=== PATIENT | male | born 1965 | race Caucasian/White ===

== ENCOUNTER 2018-07-21 16:30 | Outpatient (RCR) | payer BC, SELFPAY ==
--- NOTE | 2018-06-15 17:29 | HMH.PTOPEV ---
PT Outpatient Evaluation Rehab PT Outpatient Evaluation Start: 06/15/18 16:51 Freq: Status: Active Protocol: Document 06/15/18 17:13 DAVIDABBEY (Rec: 06/15/18 17:29 LATANYA [id number]) Electronically Signed By Donald Navarrete, PT 06/15/18 17:13 Outpatient Therapy Subjective History Subjective History Patient is a 52 year old male presenting to outpatient PT with reports of L shoulder pain S/P fall at home on 06/02. Pt reports he was working on his roof at home when he slipped and fell on his roof landing on his shoulder. He continued to slide off of the roof and fall 9 ft while landing on his buttocks. He went to the ER. Diagnostics at ER were negative for fracture. Positive for subacromial stenosis and bone spur. No other comorbidities to report. Chief Complaint Pain Stiff Weakness Symptom Type Ache Sharp Symptoms Relieved By Prescription Meds Symptoms Aggravated By Physical Activity Lifting Prior Functional Limitations None Current Functional Limitations Reaching Lifting Housework Dressing Desk Work/Reading Driving Sleeping Recreation Activity Symptom Description Constant but Variable Level of pain today (0-10) 4 Pain scale - at its best (0-10) 3 Pain scale - at its worst (0-10) 8 Shoulder/Elbow Eval Shoulder Objective Measurements Palpation Tenderness tenderness over the bicipital tendon left shoulder exam standard tenderness over the SA bursa shoulder left exam standard Posture Shoulder Posture Sitting Position (L) Forward (R) Forward Scapula Posture Sitting Position (L) Protracted (R) Protracted Scapular Posture Standing Position (L) Protracted (R) Protracted Shoulder ROM Left Shoulder Abduction Active Range of 45 Motion (degrees) Shoulder Abduction Passive Range of 92 Motion (degrees) Shoulder Fle
--- NOTE | 2018-07-21 18:00 | HMH.RHREAS ---
Rehab Reassessment Rehab OP Re-assessment Start: 07/21/18 16:59 Freq: Status: Active Protocol: Document 07/21/18 17:04 LATANYA (Rec: 07/21/18 17:59 LATANYA [id number]) Electronically Signed By Donald Navarrete, PT 07/21/18 17:04 Rehab Re-assessment Subjective Subjective Pt reports 40% improvement since start of care. Objective Objective Notes PROM: WFL AROM: flx 62 deg, abd 40 deg, ER/IR WFL Pain: today upon arrival 0/10; 10/10 at worst MMT: 3-/5 grossly shoulder flx /abd/ER/IR Neuro WNL Assessment Progress Assessment Slower Than Expected Assessment Notes Pt presenting with positive drop arm test indicating possible rotator cuff tear. Rx has consisted of GHJ/STJ/ACJ mobility exercises, postural strengthing/correction, rotator cuff strengthening and modalities prn. He continues to demonstrate difficulty with all reaching/lifting activities resulting in fucntional limitations with occupational, household, recreational and ADL activities. Patient goals met None Goals Not Met All Revised Goals NA Plan Plan Refer back to MD for follow-up . Suggest order for MRI. Continue per MD orders Frequency of Therapy 2x/week Duration of therapy 4 weeks. Time and Billing Re-Eval Time 15 Re-Eval Billing Units 1 PHYSICIAN CERTIFICATION: I certify the specified therapy services for Alexandro Strong are required, authorized, and reviewed every 30 days.
== END 2018-07-31 16:35 | disposition home or self-care (01) ==
LOC: PT 16:30
PROVIDERS: Visit Provider Internal Medicine Adolescent Medicine
DX: S46.012D Strain of muscle(s) and tendon(s) of the rotator cuff of left shoulder, subsequent encounter (principal)
CPT/HCPCS: 97010; 97014; 97016; 97033; 97035; 97110; 97140; 97163; 97164; G0283

== ENCOUNTER → 2018-08-23 15:57 | Outpatient (CLI) | payer BC, SELFPAY ==
--- NOTE | 2018-08-23 15:59 | MR_ITS ---
MR shoulder LT wo con Ordering Physician: Ac Avalos MD Patient Age: 52 years: Male HISTORY: ITS.REASON: ROTATOR CUFF SYNDROME OF LEFT SHOULDER Left shoulder injury. Fall 3 months ago on shoulder. Unable to move arm above head. Pain with raising arm. Weakness and arm. Popping. TECHNIQUE: Multiplanar multisequence imaging 1.5 TE MR I. No contrast COMPARISON :Plain films left shoulder radiograph 06/03/2018 Previous plain films overall unremarkable. FINDINGS \ Large full-thickness rotator cuff tear involving supraspinatus tendon and likely superior aspect of the subscapularis tendon. Supraspinatus tendon:. Large complete full-thickness supraspinatus tendon tear with prominent tendon retraction up to 2.5 cm.. Free fluid passes to this large defect into the subdeltoid subacromial bursa. Subscapularis tendon: There is also rotator cuff tear, likely full-thickness tear the superior aspect of subscapularis tendon. ... With this we do appears to be some edema extending to the superior aspect of the subscapularis muscle on sagittal image.The inferior portion of the subscapularis tendon and muscle complex likely remaining more intact.. With the above features there is associated atrophy of supraspinatus muscle & superior subscapularis muscle supporting long-standing tear.. infraspinatus tendon appears to remain intact. An associated Muscle maintained. . Abnormal biceps tendon. The biceps tendon is been displaced from the bicipital groove to reside for anterior a due to the subscapularis tear this serving the crystal... And/or it has been torn with retraction . Osseous glenoid intact although slightly shallow with minimal anterior labrum. There may be some fraying and degeneration of anterior labrum. Slight narrowing of posterior glenohumeral joint. The acromion demonstrates some minimal downward sloping with minimal spurring near its tip. This does narrow this subacromial space to just less than 5 mm in this region. Moderate AC joint arthropathy, hypertrophy yields slight bulbous appearance of the AC joint which is encroaches upon the medial outlet. . .... IMPRESSION: ... ... Anterior/superior rotator cuff tear pattern With this there is a large complete full-thickness tear of supraspinatus tendon with prominent retraction. . Also a full-thickness tear involving the subscapularis tendon, involving a significant portion superior aspect of this tendon.. . I suspect biceps tendon is dislocated anterior medial,,- secondary to the subscapularis tendon tear.
== END ==
PROVIDERS: PCP Internal Medicine Adolescent Medicine; Visit Provider Internal Medicine Adolescent Medicine
DX: M75.102 Unspecified rotator cuff tear or rupture of left shoulder, not specified as traumatic (principal)
CPT/HCPCS: 73221

== ENCOUNTER → 2018-09-08 10:15 | Outpatient (CLI) | payer BC, SELFPAY ==
--- NOTE | 2018-09-08 10:22 | XR_ITS ---
XR shoulder LT min 2V HISTORY: Posttraumatic pain ITS.REASON: grashy, axillary, scapular y views ORDERING PHYSICIAN: Hue Dietz MD PATIENT AGE: 52 years Comparison: 06/03/2018 FINDINGS: There are mild osteoarthritic changes of the acromioclavicular joint and glenohumeral joint. Subchondral cystic changes are present at the humeral head which may be seen with rotator cuff disease.. No fracture or dislocation. No lytic or blastic change. IMPRESSION: Mild osteoarthritic change with subchondral cystic changes of the humeral head
== END ==
PROVIDERS: PCP Internal Medicine Adolescent Medicine; Visit Provider Orthopaedic Surgery
DX: S43.402A Unspecified sprain of left shoulder joint, initial encounter (principal)
CPT/HCPCS: 73030

== ENCOUNTER 2018-10-19 13:30 | Outpatient (RCR) | payer BC, SELFPAY ==
--- NOTE | 2018-09-28 09:31 | HMH.OTOPEV ---
OT Inpatient Evaluation Rehab OT Outpatient Eval Start: 09/28/18 08:36 Freq: Status: Active Protocol: Document 09/28/18 08:37 RMARSHALL (Rec: 09/28/18 09:[facility] [id number] Electronically Signed By Dwayne Lock OT 09/28/18 08:37 Outpatient Therapy Subjective History Subjective History Pt is a 52 year old male who reports to therapy for initial evaluation to Left shoulder. Pt reports he fell off of his roof on 06/03/18 and landed on left shoulder. Pt did have an MRI completed which showed RTC tears at supraspinatus and subscapularis. Pt demonstrates with decreased AROM and PROM at left shoulder as well as decreased strength . Pt will continue to be seen in order to address these deficits. AROM L shoulder STG Flex: 130 degrees Abd: 125 degrees ER: 60 degrees IR: 60 degrees AROM L shoulder LTG Flex: 160 degrees Abd: 160 degrees ER: 80 degrees IR: 80 degrees PROM L shoulder STG Flex: 140 degrees Abd: 130 degrees ER: 80 degrees IR: 80 degrees PROM L shoulder LTG Flex: 160 degrees Abd: 160 degrees ER: 80 degrees IR: 80 degrees Chief Complaint Pain Stiff Weakness Symptom Type Ache Throb Dull Symptoms Relieved By Rest/Positioning Symptoms Aggravated By Physical Activity Lifting Prior Functional Limitations None Current Functional Limitations Reaching Lifting Housework Sleeping Recreation Activity Symptom Description Intermittent Activit
== END 2018-10-19 13:35 | disposition home or self-care (01) ==
LOC: OT 13:30
PROVIDERS: Visit Provider Orthopaedic Surgery
DX: M75.122 Complete rotator cuff tear or rupture of left shoulder, not specified as traumatic (principal); M75.02 Adhesive capsulitis of left shoulder
CPT/HCPCS: 97014; 97110; 97140; 97166; G0283

== ENCOUNTER → 2018-11-11 08:39 | Outpatient (CLI) | payer BC, SELFPAY ==
--- NOTE | 2018-11-11 08:47 | XR_ITS ---
XR chest 2V HISTORY: Hypertension ITS.REASON: pre op ORDERING PHYSICIAN: Hue Dietz MD PATIENT AGE: 52 years COMPARISON: None FINDINGS: The cardiomediastinal silhouette and pulmonary vascularity are within normal limits. The lungs are clear without infiltrates, suspicious nodules, or pleural effusions. No acute bony abnormalities. IMPRESSION: Negative chest, no acute finding
[2018-11-11 09:02] LABS: Basophils # 0.1 K/mm3 (0-0.2); Basophils % 0.8 % (0.1-2.0); Eosinophils # 0.2 K/mm3 (0.0-0.4); Eosinophils % 4.2 % (0.1-12.0); Hematocrit 45.9 % (42.0-52.0); Hemoglobin 15.7 g/dL (14.1-18.0); Lymphocytes # 1.9 K/mm3 (0.7-4.5); Lymphocytes % 34.7 % (10-50); Mean Corpuscular HGB Conc 34.1 g/dL (31.8-35.4); Mean Corpuscular Hemoglobin 30.8 pg (27.0-31.2); Mean Corpuscular Volume 90.2 fl (80-94); Mean Platelet Volume 8.4 fl (7.4-10.4); Monocytes # 0.4 K/mm3 (0.1-1.0); Monocytes % 7.9 % (1.7-9.3); Neutrophils # 2.9 K/mm3 (1.8-7.8); Neutrophils % 52.4 % (37.0-80.0); Platelet Count 239 K/mm3 (142-424); Red Blood Count 5.09 M/mm3 (4.60-6.20); Red Cell Distribution Width 13.5 % (11.5-17.5); White Blood Count 5.5 K/mm3 (4.8-10.8)
[2018-11-11 09:14] LABS: INR 1.03 (0.9-1.1); Prothrombin Time 10.6 seconds (9.4-11.8)
[2018-11-11 09:38] LABS: Alanine Aminotransferase 34 U/L (12-78); Albumin Level 3.6 gm/dL (3.4-5.0); Alkaline Phosphatase 89 U/L (46-116); Aspartate Amino Transferase 15 U/L (15-37); Bilirubin,Total 1.1 mg/dL (0.2-1.0); Blood Urea Nitrogen 16 mg/dL (7-18); Calcium 8.5 mg/dL (8.5-10.1); Carbon Dioxide 26 mmol/L (21.0-32.0); Chloride 107 mmol/L (98-107); Creatinine,Serum 1.08 mg/dL (0.70-1.30); Estimated Glomerular Filt Rate 71 ml/min (>60); GFR (African American) 86 ML/MIN (>60); Globulin 3.6 gm/dl (1.3-3.2); Glucose 93 mg/dL (74-106); Sodium 141 mmol/L (136-145); Total Protein,Serum 7.2 gm/dL (6.4-8.2)
== END ==
PROVIDERS: Visit Provider Orthopaedic Surgery
DX: Z01.818 Encounter for other preprocedural examination (principal); S43.402A Unspecified sprain of left shoulder joint, initial encounter
CPT/HCPCS: 36415; 71046; 80053; 85025; 85610

== ENCOUNTER 2018-11-30 08:32 | Day surgery (SDC) | payer BC, SELFPAY ==
[2018-11-26 13:06] VITALS: BMI 32.5
[2018-11-30] VITALS (12 sets, daily range): BP systolic 145–181; BP diastolic 93–117; PULSE 56–76; RESP 12–20; TEMP 36.1–43; O2SAT 93–96
--- NOTE | 2018-11-30 08:56 | P.PN_ITS ---
[facility] Anesthesia Checklist - Structural Data Admitted From: Home Planned Operative Procedure/s: l shoulder arthroscopy Consent for Planned Operative Procedure(s) Verified: Yes - Airway Assessment C-Spine Mobility Assessed: Yes TMJ Mobility Assessed: Yes Dentition: Good Dentition - Neurological Assessment Level of Consciousness: Awake, Alert, Appropriate - Anesthesia Plan Anesthesia Risk discussed: Yes Anesthesia Plan: Verified ASA Class: II Anesthesia Type: General - Preoperative Comments Pre-Operative Comments: IS block explained to pt, pt agrees to proceed w block [facility] History I have reviewed the patient's past medical history: Yes Medical History: Reports:: Hypertension Denies:: Cancer, Diabetes Mellitus Type 1, Diabetes Mellitus Type 2, Internal Pacemaker, MRSA *Have you ever received a pneumonia vaccine?: No *Have you received a flu vaccine this season?: No Other Surgeries: Yes: No Previous Surgery. No: Pacemaker Amputation: No Fractures: No - *Social History Educational Level: Completed College Smoking Status: Never smoker Alcohol Intake: never Alcohol Intake Frequency:: a few times a week *Occupational Status:: employed Housing: house *Travel in the last 8 weeks: None - Psychiatric History Expresses thoughts of harming self/others: None Suicide Plan Description: No Plan Family Hx:: No significant family history
[2018-11-30 10:25] LABS: Microscopic,Cath URINE MICROSCOPIC (MICROSCOPIC)
[2018-11-30 10:29] LABS: Appearance,Urine/Cath CLEAR (Clear); Bilirubin,Cath Negative (Negative); Blood, Urine/Cath 3+ (Negative); Color,Urine/Cath YELLOW (Yellow); Glucose,Urine/Cath (UA) Negative (Negative); Ketones,Urine/Cath Negative (Negative); Leukocyte Esterase,Cath Negative (Negative); Nitrate,Cath Negative (Negative); Protein,Urine/Cath Negative (Negative); Specific Gravity, Urine/Cath 1.025 (1.005-1.030); Urobilinogen,Cath 0.2 EU/dl (0.2)
[2018-11-30 10:45] LABS: Bacteria,Urine/Cath TRACE /lpf; RBC,Urine/Cath 20-50 # /hpf (0-3); Squamous Epithelial Ur./Cath Occasional #/hpf (0-5)
--- NOTE | 2018-11-30 14:21 | HMH.ANESI ---
[facility] Anesthesia Record Part I Intake, IV Amount: 2,900 Estimated blood loss (mL): 10 Urine output (mL): 350 Blood Pressure: 149/103 SaO2: 94 Pulse Rate: 71 Respiratory Rate: 12 Temperature: 97.3 F Patient is:: Awake, Stable Stable to PACU at:: 14:15
--- NOTE | 2018-11-30 14:22 | P.PN_ITS ---
[facility] Anesthesia Record Part II Discharge Time: 14:45 Destination: [facility] PACU nurse assessment reviewed?: Yes Patient Condition:: Good Anesthesia Complications:: None Swallowing reflex intact?: Yes Cyanosis?: No
--- NOTE | 2018-11-30 14:22 | HMH.ANESII ---
[facility] Anesthesia Record Part II Discharge Time: 14:45 Destination: [facility] PACU nurse assessment reviewed?: Yes Patient Condition:: Good Anesthesia Complications:: None Swallowing reflex intact?: Yes Cyanosis?: No
--- NOTE | 2018-11-30 15:13 | PC.NURSE ---
1446-detailed report called to Eliezer,RN 1449-pt transported to post op via stretcher w/rails up and left in care of POLLO Childers. Detailed report given at bedside. VSS-Pt's BP 160/92-notified POLLO Childers to continue to monitor and if does not improve notify STATION MASTER. Pt stable.
--- NOTE | 2018-11-30 16:29 | HMH.OPNOTE ---
Date of procedure: 11/30/18 Pre-op Diagnosis:: L shoulder RTC tear (supraspinatus + subscapularis) Post-op Diagnosis:: same Procedure performed:: L shoulder arthroscopy with: LHBT tenotomy, subacromial decompression w/acromioplasty, RTC repair (supraspinatus + subscapularis) Surgeon:: Hue Dietz MD Advertising Consultant(s):: Jaiden Mcarthur MD GAS LINE SERVICER:: León Ordaz Anesthesia: GETA, regional Estimated blood loss (mL): 10 Clinical Note:: 53-year-old gentleman with a history of left shoulder pain that did not respond to several months of occupational therapy, NSAIDs and icing. MRI revealed tearing of the supraspinatus and subscapularis tendons. During the course of his rehabilitation, he began developing shoulder stiffness and suspected adhesive capsulitis which improved somewhat with continued therapy and stretching. I discussed surgical options with him and we have agreed to rotator cuff repair and biceps tenotomy. I specifically discussed long-term outcomes of both the biceps tenodesis and tenotomy and the patient vocalized desire for tenotomy. I also discussed the need for an exam under anesthesia and if he appeared to have adhesive capsulitis, capsular release may be necessary. I discussed risks of the surgery in detail with the patient, including bleeding, infection, failure of the rotator cuff to heal, re-tearing of the rotator cuff, neurovascular damage, need for further surgery in the future, and risks of anesthesia. The patient vocalized understanding and provided informed consent. Operative findings:: full-thickness tears of subscapularis + anterior supraspinatus without retraction; biceps anchor intact but superior/anterior labrum frayed, substance of LHBT appears degenerated Operative note:: The patient was identified in preoperative holding and the left shoulder signed by myself. Surgical consent was confirmed with the patient and all questions answered. He was then seen by anesthesia and an interscalene nerve block performed of the left upper extremity. Patient was then taken to the OR, placed supine on the operative table and 2 g of Ancef infused intravenously. General anesthesia was induced and the patient placed into the beachchair position. The left shoulder was then prepped and draped in the usual sterile fashion for shoulder arthroscopy. Timeout was performed, identifying the correct patient, correct procedure, and correct site. The procedure was begun by performing an exam under anesthesia. The patient's range of motion ended at around 140 degrees forward elevation and 30 degrees external rotation; with gentle range of motion, I heard releasing of scar tissue in his shoulder. I did not intend to perform a manipulation under anesthesia, but this is essentially what I did. Afterward, I had full range of motion of his shoulder. Next, I used a marking pen to draw out anatomic landmarks on the patient's left shoulder. Using a 11 blade, a standard posterior viewing portal was established and a 30 degree arthroscope introduced into the glenohumeral joint. I could immediately see that the biceps was intact but the anchor frayed and the labrum frayed along its anterior-superior length. Using a spinal needle and an outside-in technique, standard anterior working portal was then established and an 8mm cannula placed. Through this portal a probe was used to examine the biceps tendon in more detail. The biceps anchor was frayed in the tendon itself, though not severely degenerative or torn, did not appear healthy and with a combination of subscap repair and a questionable biceps, the decision was made to tenotomize it. Curved arthroscopic scissors were inserted via the cannula and biceps tenotomy performed; the tendon could be seen to retract distally after it was severed. A shaver was used to debride the tendon stump. The articular surface was intact with no focal chondral lesions and good healthy cartilage on the glenoid and humeral head articular
--- NOTE | 2018-11-30 16:34 | P.OP_ITS ---
Date of procedure: 11/30/18 Pre-op Diagnosis:: L shoulder RTC tear (supraspinatus + subscapularis) Post-op Diagnosis:: same Procedure performed:: L shoulder arthroscopy with: LHBT tenotomy, subacromial decompression w/acromioplasty, RTC repair (supraspinatus + subscapularis) Surgeon:: Hue Dietz MD Naval Gunfire Liaison Officer(s):: Jaiden Mcarthur MD AIRLINE PILOT/FIRST OFFICER:: León Ordaz Anesthesia: GETA, regional Estimated blood loss (mL): 10 Clinical Note:: 53-year-old gentleman with a history of left shoulder pain that did not respond to several months of occupational therapy, NSAIDs and icing. MRI revealed tearing of the supraspinatus and subscapularis tendons. During the course of his rehabilitation, he began developing shoulder stiffness and suspected adhesive capsulitis which improved somewhat with continued therapy and stretching. I discussed surgical options with him and we have agreed to rotator cuff repair and biceps tenotomy. I specifically discussed long-term outcomes of both the biceps tenodesis and tenotomy and the patient vocalized desire for tenotomy. I also discussed the need for an exam under anesthesia and if he appeared to have adhesive capsulitis, capsular release may be necessary. I discussed risks of the surgery in detail with the patient, including bleeding, infection, failure of the rotator cuff to heal, re-tearing of the rotator cuff, neurovascular damage, need for further surgery in the future, and risks of anesthesia. The patient vocalized understanding and provided informed consent. Operative findings:: full-thickness tears of subscapularis + anterior supraspinatus without retraction; biceps anchor intact but superior/anterior labrum frayed, substance of LHBT appears degenerated Operative note:: The patient was identified in preoperative holding and the left shoulder signed by myself. Surgical consent was confirmed with the patient and all questions answered. He was then seen by anesthesia and an interscalene nerve block performed of the left upper extremity. Patient was then taken to the OR, placed supine on the operative table and 2 g of Ancef infused intravenously. General anesthesia was induced and the patient placed into the beachchair position. The left shoulder was then prepped and draped in the usual sterile fashion for [facility] arthroscopy. Timeout was performed, identifying the correct patient, correct procedure, and correct site. The procedure was begun by performing an exam under anesthesia. The patient's range of motion ended at around 140 degrees forward elevation and 30 degrees external rotation; with gentle range of motion, I heard releasing of scar tissue in his shoulder. I did not intend to perform a manipulation under anesthesia, but this is essentially what I did. Afterward, I had full range of motion of his shoulder. Next, I used a marking pen to draw out anatomic landmarks on the patient's left shoulder. Using a 11 blade, a standard posterior viewing portal was established and a 30 degree arthroscope introduced into the glenohumeral joint. I could immediately see that the biceps was intact but the anchor frayed and the labrum frayed along its anterior-superior length. Using a spinal needle and an outside-in technique, standard anterior working portal was then established and an 8mm cannula placed. Through this portal a probe was used to examine the biceps tendon in more detail. The biceps anchor was frayed in the tendon itself, though not severely degenerative or torn, did not appear healthy and with a combination of subscap repair and a questionable biceps, the decision was made to tenotomize it. Curved arthroscopic scissors were inserted via the cannula and biceps tenotomy performed; the tendon could be seen to retr
== END 2018-11-30 16:06 | disposition home or self-care (01) ==
PROVIDERS: PCP Internal Medicine Adolescent Medicine; Visit Provider Orthopaedic Surgery
PROC: (CPT 29805; principal; 2018-11-30 10:00)
DX: M75.112 Incomplete rotator cuff tear or rupture of left shoulder, not specified as traumatic (principal); S46.112A Strain of muscle, fascia and tendon of long head of biceps, left arm, initial encounter; S46.012A Strain of muscle(s) and tendon(s) of the rotator cuff of left shoulder, initial encounter
CPT/HCPCS: 29827; 29828; 29826; 81001; 96374; C1713; J2405

== ENCOUNTER → 2019-04-04 14:06 | Outpatient (CLI) | payer BC, SELFPAY ==
--- NOTE | 2019-04-04 14:09 | XR_ITS ---
PROCEDURE: XR SHOULDER LT MIN 2V CLINICAL INDICATION: Shoulder pain COMPARISON: SHOULDCMLT XR shoulder LT min 2V from 06/03/2018 SHOULDCMLT XR shoulder LT min 2V from 09/08/2018 FINDINGS: There are now 2 fixation pins involving the proximal left humerus. The bone density, joint spaces and alignment are normal. There is no acute fracture. Soft tissues are IMPRESSION: Evidence of surgery. No acute process. Dictated by: Terrence Moore 04/04/2019 14:37 Electronically signed by Terrence Moore in [facility] 04/04/2019 14:37
== END ==
PROVIDERS: PCP Internal Medicine Adolescent Medicine; Visit Provider Orthopaedic Surgery
DX: S43.402A Unspecified sprain of left shoulder joint, initial encounter (principal)
CPT/HCPCS: 73030

== ENCOUNTER 2019-04-28 15:30 | Outpatient (RCR) | payer BC, SELFPAY ==
--- NOTE | 2018-12-17 15:34 | HMH.OTOPEV ---
OT Inpatient Evaluation Rehab OT Outpatient Eval Start: 12/17/18 15:21 Freq: Status: Active Protocol: Document 12/17/18 15:22 RMARSHALL (Rec: 12/17/18 15:[facility] [id number][facility] Electronically Signed By Dwayne Lock OT 12/17/18 15:22 Outpatient Therapy Subjective History Subjective History Pt is a 53 year old male who reports to therapy for initial evauation to left shoulder. Pt has been seen previously by therapy due to injury on by falling off his roof. Pt is currently s/p L shoulder arthrosocpy, LHBT tenotomy, SAD with acromioplasty, RTC repair on the supraspinatus and subscapularis on 11/30/18. Pt does demonstrate with significant delcine in PROM with stiffness and pain. Pt will continue to be seen in order to address all deficits. L shoulder AROM Goals STG Flex: 110 degrees Abd: 110 degrees ER: 60 degrees IF: 60 degrees L Shoulder AROM LTG Flex: 160 degrees Abd: 160 degrees ER: 75 degrees IR: 75 degrees Chief Complaint Pain,Stiff,Weakness Symptom Type Ache,Throb,Sharp,Dull,Stabbing Symptoms Relieved By Rest/Positioning,Ice Symptoms Aggravated By Physical Activity,Lifting Prior Functional Limitations None Current Functional Limitations Reaching,Lifting,Housework, Dressing,Desk Work/Reading, Driving,Sleeping,Recreation Activity Symptom Description Intermittent,Activity Dependent Level of pain today (0-10) 2 Pain scale - at its best (0-10) 1 Pain scale - at its worst (0-10) 6 Shoulder/Elbow Eval Shoulder Objective Measurements Shoulder ROM Left Shoulder Abduction Passive Range of 90 degrees Motion (degrees) Shoulder Flexion Passive Range of Motion 90 degrees (degrees) Shoulder External Rotation Passive Range 20 degrees of Motion (degrees) Shoulder Internal Rotation Passive Range 30 degrees of Motion (degrees) pain with active ROM shoulder exam
--- NOTE | 2019-02-04 16:15 | HMH.RHREAS ---
Rehab Reassessment Rehab OP Re-assessment Start: 02/04/19 16:07 Freq: Status: Active Protocol: Document 02/04/19 16:07 ROOSEVELT (Rec: 02/04/19 16:15 ROOSEVELT [id number]) Electronically Signed By Dwayne Lock OT 02/04/19 16:07 Rehab Re-assessment Subjective Subjective It is still pretty tight. Objective Objective Notes Pt continues to be seen twice a week in order to engage in L shoulder AAROM exercises. Pt is also being passively ranged twice a week in supine in all directions. Pt does receive modalities such as e- stim and ionto to decrease pain/inflammation. Assessment Progress Assessment Slower Than Expected Assessment Notes Pt has shown improvement in PROM since initial evaluation. The left shoulder remains tight, but is improving with each session. He is re- educated on the importance of completing HEP during each session. Pt's pain does seem to be improved since beginning therapy. AROM L shoulder Current Flex: 80 degrees Abd: 76 degrees ER: 42 degrees IR: 53 degrees PROM L Shoudler current Flex: 135 degrees Abd: 141 degrees ER: 50 degrees IR: 61 degrees Patient goals met n/a Goals Not Met STG and LTG Revised Goals Continue progressing towards STG and LTG written at initial evaluation. Plan Plan Continue with OT plan of care at this time. Frequency of Therapy 2x's a week Duration of therapy 6 more weeks. Time and Billing Re-Eval Time 15 Re-Eval Billing Units 1 PHYSICIAN CERTIFICATION: I certify the specified therapy services for Alexandro Strong are required, authorized, and reviewed every 30 days.
--- NOTE | 2019-03-15 16:35 | HMH.RHREAS ---
Rehab Reassessment Rehab OP Re-assessment Start: 02/04/19 16:07 Freq: Status: Active Protocol: Document 03/15/19 15:20 RMDOMENICAL (Rec: 03/15/19 16:35 RMARSHALL [id number]) Electronically Signed By Dwayne Lock OT 03/15/19 15:20 Rehab Re-assessment Subjective Subjective Still a little stiff, but better. Objective Objective Notes Pt continues to be seen twice a week in order to engage in L shoulder AAROM/AROM/ Strengthening exercises. Pt is also being passively ranged twice a week in supine in all directions. Pt does receive modalities such as e-stim and ionto to decrease pain/ inflammation. Assessment Progress Assessment Slower Than Expected Assessment Notes Pt has shown improvement in PROM since initial evaluation. The left shoulder remains tight, but is improving with each session. However, pt's AROM is still significantly declined. He is re-educated on the importance of completing HEP during each session. Pt's pain does seem to be improved since beginning therapy. AROM L shoulder Current Flex: 100 degrees Abd: 100 degrees ER: 62 degrees IR: 70 degrees PROM L Shoudler current Flex: 160 degrees Abd: 150 degrees ER: 70 degrees IR: 80 degrees Patient goals met n/a Goals Not Met STG and LTG Revised Goals Continue progressing towards STG and LTG written at initial evaluation. Plan Plan Continue with OT plan of care at this time. Frequency of Therapy 2x's a week Duration of therapy 6 more weeks. Time and Billing Re-Eval Time 15 Re-Eval Billing Units 1 PHYSICIAN CERTIFICATION: I certify the specified therapy services for Alexandro Strong are requi
--- NOTE | 2019-04-26 16:46 | HMH.RHREAS ---
Rehab Reassessment Rehab OP Re-assessment Start: 02/04/19 16:07 Freq: Status: Active Protocol: Document 04/26/19 15:28 ROOSE[place]ELT (Rec: 04/26/19 16:45 RMDOMENICAL [id number]) Electronically Signed By Dwayne Lock OT 04/26/19 15:28 Rehab Re-assessment Subjective Subjective Pt reports he feels he is able to move arms better. Objective Objective Notes Pt continues to be seen twice a week in order to engage in L shoulder AAROM/AROM/ Strengthening exercises. Pt is also being passively ranged twice a week in supine in all directions. Pt does receive modalities such as e-stim and ionto to decrease pain/ inflammation. Assessment Progress Assessment Progressing as Expected Assessment Notes Pt has shown improvement in AROM since last re-assessment. However, pt's AROM is still slightly declined. Pt's pain does seem to be improved since beginning therapy. AROM L shoulder Current Flex: 118 degrees Abd: 115 degrees ER: 62 degrees IR: 70 degrees PROM L [place] current Flex: 160 degrees Abd: 150 degrees ER: 70 degrees IR: 80 degrees Patient goals met n/a Goals Not Met STG and LTG Revised Goals Continue progressing towards STG and LTG written at initial evaluation. Plan Plan Continue with OT plan of care at this time. Frequency of Therapy 2x's a week Duration of therapy 4 more weeks. Time and Billing Re-Eval Time 15 Re-Eval Billing Units 1 PHYSICIAN CERTIFICATION: I certify the specified therapy services for Alexandro Strong are required, authorized, and reviewed every 30 days.
== END 2019-04-28 15:35 | disposition home or self-care (01) ==
LOC: OT 15:30
PROVIDERS: Visit Provider Orthopaedic Surgery
DX: S46.012D Strain of muscle(s) and tendon(s) of the rotator cuff of left shoulder, subsequent encounter (principal)
CPT/HCPCS: 97014; 97033; 97110; 97140; 97164; 97166; G0283

== ENCOUNTER → 2019-07-05 08:31 | Outpatient (CLI) | payer BC, SELFPAY ==
[2019-07-05 11:02] LABS: Alanine Aminotransferase 29 U/L (12-78); Albumin Level 3.5 gm/dL (3.4-5.0); Albumin/Globulin Ratio 1.1 (1.1-1.8); Alkaline Phosphatase 85 U/L (46-116); Anion Gap 16.4 mEq/L (5-15); Aspartate Amino Transferase 16 U/L (15-37); Bilirubin,Total 0.7 mg/dL (0.2-1.0); Blood Urea Nitrogen 19 mg/dL (7-18); Calcium 8.4 mg/dL (8.5-10.1); Carbon Dioxide 25 mmol/L (21.0-32.0); Chloride 106 mmol/L (98-107); Chol/HDL Ratio 4.5 (1-3.5); Cholesterol 184 mg/dL (140-200); Creatinine,Serum 0.95 mg/dL (0.70-1.30); Estimated Glomerular Filt Rate 82 ml/min (>60); GFR (African American) 100 ML/MIN (>60); Globulin 3.3 gm/dl (1.3-3.2); Glucose 86 mg/dL (74-106); HDL Cholesterol 41 mg/dL (27-67); LDL Cholesterol 124 mg/dL (0-130); Potassium 4.4 mmoL/L (3.5-5.1); Prostate Specific Ag Screen 0.7 ng/mL (0.0-4.0); Sodium 143 mmol/L (136-145); Thyroid Stimulating Hormone 1.76 uIU/ml (0.358-3.740); Total Protein,Serum 6.8 gm/dL (6.4-8.2); Triglycerides 97 mg/dL (30-200); VLDL Cholesterol 19 mg/dL (0-40)
[2019-07-05 17:33] LABS: Basophils # 0.1 K/mm3 (0-0.2); Basophils % 0.9 % (0.1-2.0); Eosinophils # 0.2 K/mm3 (0.0-0.4); Eosinophils % 3.4 % (0.1-12.0); Hematocrit 48.6 % (42.0-52.0); Hemoglobin 16.2 g/dL (14.1-18.0); Lymphocytes # 1.8 K/mm3 (0.7-4.5); Mean Corpuscular HGB Conc 33.4 g/dL (31.8-35.4); Mean Corpuscular Hemoglobin 30.9 pg (27.0-31.2); Mean Corpuscular Volume 92.5 fl (80-94); Mean Platelet Volume 9.8 fl (7.4-10.4); Monocytes # 0.4 K/mm3 (0.1-1.0); Monocytes % 7.4 % (1.7-9.3); Neutrophils # 3.2 K/mm3 (1.8-7.8); Neutrophils % 56.3 % (37.0-80.0); Platelet Count 211 K/mm3 (142-424); Red Blood Count 5.25 M/mm3 (4.60-6.20); Red Cell Distribution Width 13.1 % (11.5-17.5); White Blood Count 5.6 K/mm3 (4.8-10.8)
== END ==
PROVIDERS: Visit Provider Internal Medicine Adolescent Medicine
DX: Z00.00 Encounter for general adult medical examination without abnormal findings (principal); E29.1 Testicular hypofunction
CPT/HCPCS: 36415; 80053; 80061; 84443; 85025; G0103

== ENCOUNTER → 2020-11-02 09:01 | Outpatient (CLI) | payer BC, SELFPAY ==
[2020-11-02 09:19] LABS: Basophils # 0.1 K/mm3 (0-0.2); Eosinophils # 0.2 K/mm3 (0.0-0.4); Eosinophils % 3.6 % (0.1-12.0); Hematocrit 47.7 % (42.0-52.0); Hemoglobin 16.4 g/dL (14.1-18.0); Lymphocytes # 1.7 K/mm3 (0.7-4.5); Lymphocytes % 28.9 % (10-50); Mean Corpuscular HGB Conc 34.3 g/dL (31.8-35.4); Mean Corpuscular Hemoglobin 31.2 pg (27.0-31.2); Mean Corpuscular Volume 90.8 fl (80-94); Mean Platelet Volume 8.4 fl (7.4-10.4); Monocytes # 0.6 K/mm3 (0.1-1.0); Monocytes % 9.3 % (1.7-9.3); Neutrophils # 3.4 K/mm3 (1.8-7.8); Neutrophils % 57.1 % (37.0-80.0); Platelet Count 206 K/mm3 (142-424); Red Blood Count 5.26 M/mm3 (4.60-6.20); Red Cell Distribution Width 13.6 % (11.5-17.5)
[2020-11-02 09:30] LABS: Hemoglobin A1C 5.6 % (4.0-6.0)
[2020-11-02 09:52] LABS: Alanine Aminotransferase 46 U/L (12-78); Albumin Level 4.1 g/dl (3.5-5.0); Albumin/Globulin Ratio 1.3 (1.1-1.8); Alkaline Phosphatase 91 U/L (38-126); Anion Gap 8.5 mEq/L (5-15); Aspartate Amino Transferase 43 U/L (17-59); Blood Urea Nitrogen 14 mg/dl (9-20); Calcium 9.2 mg/dl (8.4-10.2); Carbon Dioxide 28 mmol/L (22.0-30.0); Chloride 108 mmol/L (98-107); Chol/HDL Ratio 4.2 (1-3.5); Cholesterol 206 mg/dl (140-200); Estimated Glomerular Filt Rate 69 ml/min (>60); GFR (African American) 84 ML/MIN (>60); Globulin 3.1 g/dL (1.3-3.2); Glucose 101 mg/dl (74-100); HDL Cholesterol 49 mg/dl (40-60); Potassium 4.5 mmoL/L (3.5-5.1); Sodium 140 mmol/L (136-145); Total Protein,Serum 7.2 g/dl (6.3-8.2); Triglycerides 159 mg/dl (30-150); VLDL Cholesterol 32 mg/dL (0-40)
[2020-11-02 10:04] LABS: Direct LDL Cholesterol 119.47 mg/dL (100-129)
[2020-11-02 10:23] LABS: Prostate Specific Ag Screen 0.6 ng/ml (0.0-4.0)
== END ==
PROVIDERS: Visit Provider Internal Medicine Adolescent Medicine
DX: Z00.00 Encounter for general adult medical examination without abnormal findings (principal); I10 Essential (primary) hypertension; E66.9 Obesity, unspecified; Z12.5 Encounter for screening for malignant neoplasm of prostate; Z68.31 Body mass index [BMI] 31.0-31.9, adult
CPT/HCPCS: 36415; 80053; 80061; 83036; 85025; G0103

== ENCOUNTER 2020-11-12 16:20 | Observation (INO) | payer BC, SELFPAY ==
[2020-11-12 12:11] LABS: Basophils # 0.1 K/mm3 (0-0.2); Basophils % 0.4 % (0.1-2.0); Chloride 101 mmol/L (98-107); Eosinophils # 0.2 K/mm3 (0.0-0.4); Eosinophils % 1.2 % (0.1-12.0); Hemoglobin 17.3 g/dL (14.1-18.0); Lymphocytes # 1.7 K/mm3 (0.7-4.5); Lymphocytes % 10.3 % (10-50); Mean Corpuscular HGB Conc 33.9 g/dL (31.8-35.4); Mean Corpuscular Hemoglobin 31.1 pg (27.0-31.2); Mean Corpuscular Volume 91.7 fl (80-94); Mean Platelet Volume 8.4 fl (7.4-10.4); Monocytes # 1.1 K/mm3 (0.1-1.0); Monocytes % 6.4 % (1.7-9.3); Neutrophils # 13.6 K/mm3 (1.8-7.8); Neutrophils % 81.8 % (37.0-80.0); Platelet Count 220 K/mm3 (142-424); Red Blood Count 5.56 M/mm3 (4.60-6.20); Red Cell Distribution Width 13.3 % (11.5-17.5); White Blood Count 16.7 K/mm3 (4.8-10.8)
[2020-11-12 12:12] LABS: Potassium 4.3 mmoL/L (3.5-5.1); Sodium 138 mmol/L (136-145)
[2020-11-12 12:14] LABS: Amylase 118 U/L (30-110); Anion Gap 15.3 mEq/L (5-15); Carbon Dioxide 26 mmol/L (22.0-30.0)
[2020-11-12 12:15] LABS: Albumin Level 4.8 g/dl (3.5-5.0); Albumin/Globulin Ratio 1.2 (1.1-1.8); Globulin 4.1 g/dL (1.3-3.2); Lipase 267 U/L (23-300); Total Protein,Serum 8.9 g/dl (6.3-8.2)
[2020-11-12 12:17] LABS: Alanine Aminotransferase 29 U/L (12-78); Alkaline Phosphatase 95 U/L (38-126); Aspartate Amino Transferase 26 U/L (17-59); Bilirubin,Total 1.7 mg/dl (0.2-1.3); Blood Urea Nitrogen 11 mg/dl (9-20); Calcium 9.8 mg/dl (8.4-10.2); Estimated Glomerular Filt Rate 77 ml/min (>60); GFR (African American) 94 ML/MIN (>60); Glucose 136 mg/dl (74-100)
[2020-11-12 12:19] LABS: MANUAL DIFFERENTIAL MANUAL DIFFERENTIAL (MANUAL DIFF)
--- NOTE | 2020-11-12 14:01 | CT_ITS ---
PROCEDURE: CT ABDOMEN PELVIS W CON CLINICAL INDICATION: ABD PAIN,LLQ PAIN COMPARISON: No exams were available for comparison TECHNIQUE: IV Contrast: 75ML Isovue 370 Oral Contrast None Axial images obtained with sagittal and coronal reformats. All CT scans at the facility use one or more dose reduction, viz: automated exposure control, ma/kV adjustment per patient size (including targeted exams where dose is matched to indication, i.e. head), or iterative reconstruction technique. FINDINGS: LOWER THORAX: No acute finding ABDOMEN & PELVIS: Diffuse fatty infiltration of the liver. The gallbladder is unremarkable. No evidence of cholelithiasis. There is a focal hypodensity noted in the gallbladder fossa, may represent Phrygian cap. No intra or extrahepatic biliary dilation. There is heterogeneous enhancement of the tail of the pancreas with adjacent peripancreatic stranding and a small amount of fluid, raises the concern for pancreatitis. The rest of the pancreas appears normal in caliber. No significant pancreatic ductal dilation. The spleen is unremarkable. Focal soft tissue density noted adjacent to the splenic hilum measuring 1.6 centimeters, likely represents a splenule. Lymph node should be considered. No other significant lymphadenopathy. No retroperitoneal or mesenteric lymphadenopathy. The large and small bowel loops demonstrate no focal wall thickening, obstruction or adjacent inflammatory changes. No free intraperitoneal air. The visualized abdominal aorta is unremarkable. Visualized osseous structures are unremarkable.. IMPRESSION: Focal hypoenhancing area at the tail of the pancreas with adjacent pericardiac retic stranding, raises the concern for pancreatitis. Small amount of fluid in the left upper quadrant. Close follow up to resolution is recommended. Splenule is noted. Hepatic steatosis. Dictated by: Ela Mcarthur 11/12/2020 14:41 Ela Mcarthur in [facility] 11/12/2020 14:41
--- NOTE | 2020-11-12 16:34 | XR_ITS ---
PROCEDURE INFORMATION: Exam: XR Chest Exam date and time: 11/12/2020 4:34 PM Age: 54 years old Clinical indication: Abnormal findings; Other: Pancreatitis TECHNIQUE: Imaging protocol: XR of the chest. Views: 2 views. COMPARISON: DX (CHEST PA, CHEST, CHEST PA) 11/11/2018 8:50 AM FINDINGS: Lungs: Unremarkable. No consolidation. Pleural spaces: Unremarkable. No pleural effusion. No pneumothorax. Heart/Mediastinum: Unremarkable. No cardiomegaly. Bones/joints: Unremarkable. IMPRESSION: No acute findings.
[2020-11-12 16:47] VITALS: BP 166/96; PULSE 94; RESP 18; TEMP 37.2; O2SAT 96; BMI 32.6
[2020-11-12 17:12] LABS: Lymphocytes % 5 % (10-50); Monocytes % 6 % (2-9); Neutrophils % 86 % (42-76); Platelet Estimate Normal; RBC Morphology Normal; Total Cells Counted 100
[2020-11-12 17:36] LABS: Chol/HDL Ratio 3.8 (1-3.5); Cholesterol 200 mg/dl (140-200); HDL Cholesterol 52 mg/dl (40-60); Triglycerides 109 mg/dl (30-150); VLDL Cholesterol 22 mg/dL (0-40)
--- NOTE | 2020-11-12 18:06 | HMH.HP ---
*Admission Date: 11/12/20 *Chief complaint: Abdominal pain, weight loss *History of present illness: 54-year-old white male with hypertension who presented to my office with a chief complaint of gnawing abdominal pain and inability to eat as well as constipation over the past 6 or 7 days. He notes that he is lost 8 pounds unintentionally because he cannot eat. He noted the pain for 5 days ago worsening after he left a restaurant after a high fatty meal. [facility] History I have reviewed the patient's past medical history: Yes Medical History: Reports:: Hypertension Denies:: Cancer, Diabetes Mellitus Type 1, Diabetes Mellitus Type 2, Internal Pacemaker, MRSA, Seizures *Have you ever received a pneumonia vaccine?: No *Have you received a flu vaccine this season?: No Other Medical History: Denies: Blood Transfusion Reaction Laterality Cases: Left: Arthroscopy Shoulder Other Surgeries: Yes: No Previous Surgery. No: Pacemaker Amputation: No Fractures: No - *Social History Last grade of school completed: High school graduate Smoking Status: Never smoker Alcohol Intake: never Alcohol Intake Frequency:: a few times a week *Occupational Status:: employed Housing: house Household Members: spouse *Travel in the last 8 weeks: None Family Hx:: No significant family history Review of Systems - Review of Systems Review of systems:: pertinent systems reviewed and negative unless documented below 10 point review of systems negative except for GI issues as noted. Denies vomiting, denies blood in stool. Reports some nausea but no actual vomiting. Reports no abdominal bruising. Does note that he drinks 3-[address] [facility] Home Medications Medication Instructions Recorded Confirmed Type bisoprolol fumarate 10 mg tablet 10 mg PO DAILY 09/08/18 11/12/20 History ibuprofen 800 mg tablet 800 mg PO BIDP PRN 09/08/18 11/12/20 History Omeprazole [Omeprazole 20mg 20 mg PO DAILY 11/12/20 11/12/20 History Capsule] Allergies Allergy/AdvReac Type Severity Reaction Status Date / Time No Known Allergies Allergy Verified 05/06/19 15:38 Exam Vital signs and Labs for Last 24 Hours: Temp Pulse Resp BP Pulse Ox 98.9 F 94 H 18 166/96 H 96 11/12/20 16:47 11/12/20 16:47 11/12/20 16:47 11/12/20 16:47 11/12/20 16:47 Laboratory Results - last 24 hr 11/12/20 11:49: Sodium 138, Potassium 4.3, Chloride 101, Carbon Dioxide 26, Anion Gap 15.3 H, BUN 11, Creatinine 1.00, Estimated GFR 77, Est GFR ( Amer) 94, Glucose 136 H, Calcium 9.8, Total Bilirubin 1.7 H, AST 26, ALT 29, Alkaline Phosphatase 95, Total Protein 8.9 H, Albumin 4.8, Globulin 4.1 H, Albumin/Globulin Ratio 1.2, Amylase 118 H, Lipase 267 11/12/20 11:49: WBC 16.7 H, RBC 5.56, Hgb 17.3, Hct 51.0, MCV 91.7, MCH 31.1, MCHC 33.9, RDW 13.3, Plt Count 220, MPV 8.4, Neut % (Auto) 81.8 H, Lymph % (Auto) 10.3, [place] % (Auto) 6.4, Eos % (Auto) 1.2, Baso % (Auto) 0.4, Neut # (Auto) 13.6 H, Lymph # (Auto) 1.7, [place] # (Auto) 1.1 H, Eos # (Auto) 0.2, Baso # (Auto) 0.1, Total Counted 100, Neutrophils % (Manual) 86 H, Lymphocytes % (Manual) 5 L, Atypical Lymphs % 3.0, Monocytes % (Manual) 6, Platelet Estimate Normal, RBC Morphology Normal 11/12/20 17:10: Triglycerides 109, Cholesterol 200, LDL Cholesterol Direct 87.90 L, VLDL Cholesterol 22, HDL Cholesterol 52, Cholesterol/HDL Ratio 3.8 H I & O for Last 24 hours: Intake & Output 11/10/20 11/11/20 11/12/20 11/13/20 11:59 11:59 11:59 11:59 Weight 221 lb 3 oz - Constitutional no acute distress - *Routine HEENT Exam Head: Present: normocephalic Eye: Present: EOMI, PERRL ENT: Present: mucous membranes moist - *Routine Neck Exam Present: supple. Absent: lymphadenopathy - *Routine Respiratory Exam Present: CTA bilaterally - *Routine Cardiovascular Exam Present: RRR - *Routine Abdominal Exam Present: soft, tenderness (Left flank and into the left upper quadrant), guarding. Absent: rebound, Villatoro Martínez's sign,
[2020-11-12 20:00] VITALS: BP 179/98; PULSE 89; RESP 16; TEMP 37.3; O2SAT 97
--- NOTE | 2020-11-13 03:26 | PC.NURSE ---
No acute changes overnight. Pt has c/o discomfort in his abd this shift, Tylenol given per mar with desired effects. bowels sounds x4, abd soft and nontender. A&O. pt able to ambulate independently. IV patent, LR @ 150. VSS, call light in reach, no concerns at this time.
[2020-11-13 04:00] VITALS: BP 187/97; PULSE 78; RESP 18; TEMP 37.2; O2SAT 95
[2020-11-13 05:04] VITALS: BMI 32.9
[2020-11-13 06:42] LABS: Eosinophils # 0.2 K/mm3 (0.0-0.4); Eosinophils % 1.6 % (0.1-12.0); Lymphocytes # 1.7 K/mm3 (0.7-4.5); Mean Platelet Volume 8.5 fl (7.4-10.4)
[2020-11-13 06:52] LABS: Alanine Aminotransferase 20 U/L (12-78); Albumin Level 3.8 g/dl (3.5-5.0); Albumin/Globulin Ratio 1.1 (1.1-1.8); Alkaline Phosphatase 79 U/L (38-126); Amylase 63 U/L (30-110); Anion Gap 8.7 mEq/L (5-15); Aspartate Amino Transferase 20 U/L (17-59); Bilirubin,Total 1.4 mg/dl (0.2-1.3); Blood Urea Nitrogen 11 mg/dl (9-20); Carbon Dioxide 30 mmol/L (22.0-30.0); Chloride 102 mmol/L (98-107); Creatinine Clearance Estimated 131 mL/min (50-200); Estimated Glomerular Filt Rate 87 ml/min (>60); GFR (African American) 106 ML/MIN (>60); Globulin 3.5 g/dL (1.3-3.2); Glucose 108 mg/dl (74-100); Lipase 97 U/L (23-300); Potassium 3.7 mmoL/L (3.5-5.1); Sodium 137 mmol/L (136-145); Total Protein,Serum 7.3 g/dl (6.3-8.2)
[2020-11-13 06:59] LABS: Basophils # 0.1 K/mm3 (0-0.2); Basophils % 0.4 % (0.1-2.0); Lymphocytes % 13.4 % (10-50); Mean Corpuscular HGB Conc 34.4 g/dL (31.8-35.4); Mean Corpuscular Hemoglobin 31.1 pg (27.0-31.2); Mean Corpuscular Volume 90.5 fl (80-94); Monocytes % 8.1 % (1.7-9.3); Neutrophils # 9.5 K/mm3 (1.8-7.8); Neutrophils % 76.4 % (37.0-80.0); Platelet Count 182 K/mm3 (142-424); Red Blood Count 4.97 M/mm3 (4.60-6.20); Red Cell Distribution Width 13.4 % (11.5-17.5); White Blood Count 12.4 K/mm3 (4.8-10.8)
--- NOTE | 2020-11-13 07:00 | US_ITS ---
PROCEDURE: US ABDOMEN COMPLETE CLINICAL INDICATION: pancreatitis... eval for cholelithiasis COMPARISON: No exams were available for comparison FINDINGS: PANCREAS: The pancreas is poorly visualized due to the presence of overlying bowel gas. LIVER: No focal liver lesions demonstrated. Diffuse fatty infiltration of the liver. No intrahepatic biliary ductal dilatation evident. There is appropriate direction of blood flow within a non dilated portal vein RIGHT KIDNEY: Unremarkable. Normal size and echogenicity. No hydronephrosis LEFT KIDNEY: Unremarkable. Normal size and echogenicity. No hydronephrosis GALLBLADDER: Phrygian cap is noted. No gallstones, gallbladder wall thickening, pericholecystic fluid, or biliary dilatation. There is evidence of focal hyperechogenicity is noted in the gallbladder, demonstrates no evidence of mobility are unchanged of position measuring less than 5 millimeters, most likely represents gallbladder polyps. Sludge is noted in the gallbladder. AORTA: No evidence of aneurysmal dilatation. SPLEEN: Unremarkable. Normal size and echogenicity ASCITES: None demonstrated. IMPRESSION: Sludge in the gallbladder. Findings are suggestive of polyps in the gallbladder measuring up to 5 millimeters. Dictated by: Ela Mcarthur 11/13/2020 10:32 Ela Mcarthur in [place] 11/13/2020 10:32
[2020-11-13 07:01] LABS: Hemoglobin 15.5 g/dL (14.1-18.0)
--- NOTE | 2020-11-13 07:29 | P.CONPHA_ITS ---
[facility] Pharmacy VTE Monitoring - Patient Demographics Admission date: 11/12/20 Report Date: 11/13/20 Time: 07:29 Allergies/Adverse Reactions: Patient Allergies No Known Allergies Allergy (Verified 05/06/19 15:38) Height: 1.75 m Weight: 100.924 kg Patient Problems: Current Active Problems Pancreatitis (Acute) - VTE Risk Labs: VTE Related Lab Results Hgb 15.5 g/dL (14.1-18.0) D 11/13/20 05:57 Hct 45.0 % (42.0-52.0) 11/13/20 05:57 Plt Count 182 K/mm3 (142-424) 11/13/20 05:57 BUN 11 mg/dl (9-20) 11/13/20 05:57 Creatinine 0.90 mg/dl (0.66-1.25) 11/13/20 05:57 Estimated Creat Clear 131 mL/min (50-200) 11/13/20 05:57 Was VTE Risk Assessment Performed: Yes VTE Score: 2 VTE Risk Level: Very Low Risk - Prophylaxis VTE Prophylaxis Ordered?: Yes Types of VTE Prophylaxis: TEDS Knee High Location of Applied Device: Bilateral Lower Extremeties
[2020-11-13 07:41] VITALS: BP 168/92; PULSE 82; RESP 20; TEMP 37.1; O2SAT 96
--- NOTE | 2020-11-13 07:49 | HMH.DCSUM ---
General - General Admission date:: 11/12/20 Discharge date: 11/13/20 HPI HPI: 54-year-old white male with hypertension who presented to my office with a chief complaint of gnawing abdominal pain and inability to eat as well as constipation over the past 6 or 7 days. He notes that he is lost 8 pounds unintentionally because he cannot eat. He noted the pain for 5 days ago worsening after he left a restaurant after a high fatty meal. Objective Vital signs: Temp Pulse Resp BP Pulse Ox 98.8 F 82 20 168/92 H 96 11/13/20 07:41 11/13/20 07:41 11/13/20 07:41 11/13/20 07:41 11/13/20 07:41 Results Labs on day of discharge: Labs from last 24 hours 11/13/20 11/13/20 11/12/20 05:57 05:57 17:10 WBC 12.4 H D RBC 4.97 Hgb 15.5 D Hct 45.0 MCV 90.5 MCH 31.1 MCHC 34.4 RDW 13.4 Plt Count 182 MPV 8.5 Neut % (Auto) 76.4 Lymph % (Auto) 13.4 [place] % (Auto) 8.1 Eos % (Auto) 1.6 Baso % (Auto) 0.4 Neut # (Auto) 9.5 H Lymph # (Auto) 1.7 [place] # (Auto) 1.0 Eos # (Auto) 0.2 Baso # (Auto) 0.1 Total Counted Neutrophils % (Manual) Lymphocytes % (Manual) Atypical Lymphs % Monocytes % (Manual) Platelet Estimate RBC Morphology Sodium 137 Potassium 3.7 Chloride 102 Carbon Dioxide 30 Anion Gap 8.7 BUN 11 Creatinine 0.90 Estimated Creat Clear 131 Estimated GFR 87 Est GFR ( Amer) 106 Glucose 108 H D Calcium 9.0 Total Bilirubin 1.4 H AST 20 ALT 20 D Alkaline Phosphatase 79 Total Protein 7.3 Albumin 3.8 D Globulin 3.5 H Albumin/Globulin Ratio 1.1 Triglycerides 109 Cholesterol 200 LDL Cholesterol Direct 87.90 L VLDL Cholesterol 22 HDL Cholesterol 52 Cholesterol/HDL Ratio 3.8 H Amylase 63 D Lipase 97 11/12/20 11/12/20 11:49 11:49 WBC 16.7 H RBC 5.56 Hgb 17.3 Hct 51.0 MCV 91.7 MCH 31.1 MCHC 33.9 RDW 13.3 Plt Count 220 MPV 8.4 Neut % (Auto) 81.8 H Lymph % (Auto) 10.3 [place] % (Auto) 6.4 Eos % (Auto) 1.2 Baso % (Auto) 0.4 Neut # (Auto) 13.6 H Lymph # (Auto) 1.7 [place] # (Auto) 1.1 H Eos # (Auto) 0.2 Baso # (Auto) 0.1 Total Counted 100 Neutrophils % (Manual) 86 H Lymphocytes % (Manual) 5 L Atypical Lymphs % 3.0 Monocytes % (Manual) 6 Platelet Estimate Normal RBC Morphology Normal Sodium 138 Potassium 4.3 Chloride 101 Carbon Dioxide 26 Anion Gap 15.3 H BUN 11 Creatinine 1.00 Estimated Creat Clear Estimated GFR 77 Est GFR ( Amer) 94 Glucose 136 H Calcium 9.8 Total Bilirubin 1.7 H AST 26 ALT 29 Alkaline Phosphatase 95 Total Protein 8.9 H Albumin 4.8 Globulin 4.1 H Albumin/Globulin Ratio 1.2 Triglycerides Cholesterol LDL Cholesterol Direct VLDL Cholesterol HDL Cholesterol Cholesterol/HDL Ratio Amylase 118 H Lipase 267 DS: Diagnosis - Discharge Diagnosis (1) Pancreatitis Status: Acute Discharge Plan - Patient Discharge Instructions Patient Instructions: Acute Pancreatitis, DI for Pancreatitis, DI for Abdominal Pain-Adult - Follow up Plan Home Medications: Home Medications Medication Instructions Recorded Confirmed Type bisoprolol fumarate 10 mg tablet 10 mg PO DAILY 09/08/18 11/12/20 History ibuprofen 800 mg tablet 800 mg PO BIDP PRN 09/08/18 11/12/20 History Omeprazole [Omeprazole 20mg 20 mg PO DAILY 11/12/20 11/12/20 History Capsule] Prescriptions/Medication Reconciliation: No Action bisoprolol fumarate 10 mg tablet 10 mg PO DAILY ibuprofen 800 mg tablet 800 mg PO BIDP PRN PRN Reason: PAIN Omeprazole [Omeprazole 20mg Capsule] 20 mg PO DAILY - Problem Reconciliation Problems Reviewed?: Yes
[2020-11-13 12:00] VITALS: BP 148/82
--- NOTE | 2020-11-13 13:13 | HMH.PHAINT ---
MEDICATION RECONCILIATION COMPLETED ON PATIENT USING EXTERNAL FILL HISTORY FROM PHARMACY, CALL TO [facility], AND LIST FROM MD OFFICE. -GARCÍA WHARTOND
--- NOTE | 2020-11-13 14:26 | PC.NURSE ---
Diet advanced to full liquid/low fat per Dr. Trejo after US of GB this AM. Pt tolerated lunch tray. Denies pain or nausea. Is currently sitting up in bed w/ @ bedside. Dr. Trejo made aware of this, awaiting response as to if MD wants to increase pt's diet @ this time.
[2020-11-13 14:45] VITALS: BP 149/87; PULSE 65; RESP 18; TEMP 36.7; O2SAT 96
--- NOTE | 2020-11-13 15:12 | HMH.ACPN2 ---
Internal Medicine - PN: Subj *Date: 11/13/20 *Time: 15:12 Interval history: Mr. Strong has remained n.p.o. overnight. Awaiting ultrasound of abdomen this morning. Still having some mild abdominal discomfort but denies nausea or vomiting. No fever or chills. No diarrhea. Feels significantly better. No shortness of breath on exam this morning Exam Vital signs and Labs for Last 24 Hours: Temp Pulse Resp BP Pulse Ox 98.1 F 65 18 149/87 H 96 11/13/20 14:45 11/13/20 14:45 11/13/20 14:45 11/13/20 14:45 11/13/20 14:45 Laboratory Results - last 24 hr 11/12/20 11:49: Total Counted 100, Neutrophils % (Manual) 86 H, Lymphocytes % (Manual) 5 L, Atypical Lymphs % 3.0, Monocytes % (Manual) 6, Platelet Estimate Normal, RBC Morphology Normal 11/12/20 17:10: Triglycerides 109, Cholesterol 200, LDL Cholesterol Direct 87.90 L, VLDL Cholesterol 22, HDL Cholesterol 52, Cholesterol/HDL Ratio 3.8 H 11/13/20 05:57: WBC 12.4 H D, RBC 4.97, Hgb 15.5 D, Hct 45.0, MCV 90.5, MCH 31.1, MCHC 34.4, RDW 13.4, Plt Count 182, MPV 8.5, Neut % (Auto) 76.4, Lymph % (Auto) 13.4, [place] % (Auto) 8.1, Eos % (Auto) 1.6, Baso % (Auto) 0.4, Neut # (Auto) 9.5 H, Lymph # (Auto) 1.7, [place] # (Auto) 1.0, Eos # (Auto) 0.2, Baso # (Auto) 0.1 11/13/20 05:57: Sodium 137, Potassium 3.7, Chloride 102, Carbon Dioxide 30, Anion Gap 8.7, BUN 11, Creatinine 0.90, Estimated Creat Clear 131, Estimated GFR 87, Est GFR ( Amer) 106, Glucose 108 H D, Calcium 9.0, Total Bilirubin 1.4 H, AST 20, ALT 20 D, Alkaline Phosphatase 79, Total Protein 7.3, Albumin 3.8 D, Globulin 3.5 H, Albumin/Globulin Ratio 1.1, Amylase 63 D, Lipase 97 I & O for Last 24 hours: Intake & Output 11/10/20 11/11/20 11/12/20 11/13/20 23:59 23:59 23:59 23:59 Intake Total 5 / 221 Balance 2214 / 221 Weight 100.329 kg 100.924 kg Microbiology Reports for the Last 24 Hours: Microbiology 11/12/20 17:10 Nasopharyngeal Coronavirus COVID-19 PCR - Final - Constitutional no acute distress, obese - *Routine HEENT Exam Head: Present: normocephalic Eye: Present: EOMI, PERRL ENT: Present: mucous membranes moist - *Routine Neck Exam Present: supple. Absent: lymphadenopathy - *Routine Respiratory Exam Present: CTA bilaterally - *Routine Cardiovascular Exam Present: RRR - *Routine Abdominal Exam Present: soft, normoactive bowel sounds, tenderness (minimal in LUQ, better per his report) - *Routine Extremities Exam Absent: cyanosis, clubbing, edema - *Routine Skin Exam Present: warm. Absent: rash - *Routine Neurological Exam Present: alert, oriented X3 Assessment and Plan (1) Pancreatitis Status: Acute Category: Medical Code(s): K85.90 - Acute pancreatitis without necrosis or infection, unspecified (2) Obesity (BMI 30.0-34.9) Status: Chronic Category: Medical Code(s): E66.9 - Obesity, unspecified complicates all aspects of his care. - Assessment and plan all Dx Assessment and Plan for all problems:: Patient admitted for pancreatitis. Awaiting ultrasound of abdomen this morning. Has been n.p.o. all night. Unsure of ability of patient to tolerate oral intake. We will continue IV fluids. Would like to advance his diet to at least full liquids before discharging home. Further management pending imaging results. Likely discharge home tomorrow if tolerates progression of diet after imaging. Full code.
[2020-11-13 20:00] VITALS: BP 121/67; PULSE 66; RESP 16; TEMP 36.7; O2SAT 95
[2020-11-14 04:00] VITALS: BP 121/71; PULSE 54; RESP 16; TEMP 36.9; O2SAT 96
--- NOTE | 2020-11-14 04:36 | PC.NURSE ---
pt has rested t/o shift, no bowel movements this shift, no reports of pain, tolerating diet without issues, remains on room air with lungs CTA
[2020-11-14 05:05] VITALS: BMI 32.6
[2020-11-14 06:37] LABS: Basophils % 0.5 % (0.1-2.0); Eosinophils # 0.5 K/mm3 (0.0-0.4); Eosinophils % 5.3 % (0.1-12.0); Hematocrit 42.5 % (42.0-52.0); Hemoglobin 14.5 g/dL (14.1-18.0); Lymphocytes # 1.8 K/mm3 (0.7-4.5); Lymphocytes % 19.5 % (10-50); Mean Corpuscular Hemoglobin 31.9 pg (27.0-31.2); Mean Corpuscular Volume 93.6 fl (80-94); Mean Platelet Volume 8.4 fl (7.4-10.4); Monocytes # 0.8 K/mm3 (0.1-1.0); Monocytes % 8.2 % (1.7-9.3); Neutrophils % 66.5 % (37.0-80.0); Platelet Count 213 K/mm3 (142-424); Red Blood Count 4.54 M/mm3 (4.60-6.20); Red Cell Distribution Width 13.2 % (11.5-17.5); White Blood Count 9.1 K/mm3 (4.8-10.8)
[2020-11-14 06:59] LABS: Anion Gap 7.2 mEq/L (5-15); Blood Urea Nitrogen 14 mg/dl (9-20); Calcium 9.1 mg/dl (8.4-10.2); Carbon Dioxide 33 mmol/L (22.0-30.0); Chloride 105 mmol/L (98-107); Creatinine Clearance Estimated 106 mL/min (50-200); Estimated Glomerular Filt Rate 69 ml/min (>60); GFR (African American) 84 ML/MIN (>60); Glucose 94 mg/dl (74-100); Magnesium 2.5 mg/dl (1.6-2.3); Potassium 4.2 mmoL/L (3.5-5.1); Sodium 141 mmol/L (136-145)
[2020-11-14 08:00] VITALS: BP 136/79; PULSE 65; RESP 18; TEMP 36.8; O2SAT 95
--- NOTE | 2020-11-14 08:11 | HMH.DCSUM ---
General - General Admission date:: 11/12/20 Discharge date: 11/14/20 HPI HPI: 54-year-old white male with hypertension who presented to my office with a chief complaint of gnawing abdominal pain and inability to eat as well as constipation over the past 6 or 7 days. He notes that he is lost 8 pounds unintentionally because he cannot eat. He noted the pain for 5 days ago worsening after he left a restaurant after a high fatty meal. Hospital Course Hospital Course: Patient was admitted. Placed n.p.o. CT scan was reviewed, patient did note that he does drink 4-5 times weekly. Other work-up included triglyceride testing which was unremarkable. Gallbladder ultrasound reveals lots of sludge and a mildly thickened gallbladder wall but no evidence of stone. Patient did have a couple of black stools yesterday. On questioning this morning he does admit that he took a lot of Pepto-Bismol the day before he was admitted. No hemoglobin drop was noted, patient felt much better this morning, stools did return to a brown color and his belly was nontender, he will be discharged home with a low-fat diet, alcohol avoidance, proton pump inhibitor and surgery follow-up for gallbladder evaluation for cholecystectomy and evaluation for EGD. Of note patient had a normal colonoscopy less than 2 years ago. Objective Vital signs: Temp Pulse Resp BP Pulse Ox 98.4 F 54 L 16 121/71 96 11/14/20 04:00 11/14/20 04:00 11/14/20 04:00 11/14/20 04:00 11/14/20 04:00 no acute distress - *Routine HEENT Exam Head: Present: normocephalic Eye: Present: EOMI, PERRL ENT: Present: mucous membranes moist - *Routine Neck Exam Present: supple - *Routine Respiratory Exam Present: CTA bilaterally - *Routine Cardiovascular Exam Present: RRR - *Routine Abdominal Exam Present: soft, normoactive bowel sounds. Absent: tenderness - *Routine Rectal Exam Comments: Deferred - *Routine Exam Comments: Deferred - *Routine Extremities Exam Absent: cyanosis, clubbing, edema - *Routine Skin Exam Present: warm. Absent: rash - Detailed Eye Exam Eyelids: Bilateral normal inspection Results Labs on day of discharge: Labs from last 24 hours 11/14/20 11/14/20 06:02 06:02 WBC 9.1 D RBC 4.54 L Hgb 14.5 Hct 42.5 MCV 93.6 MCH 31.9 H MCHC 34.0 RDW 13.2 Plt Count 213 MPV 8.4 Neut % (Auto) 66.5 Lymph % (Auto) 19.5 [place] % (Auto) 8.2 Eos % (Auto) 5.3 Baso % (Auto) 0.5 Neut # (Auto) 6.0 Lymph # (Auto) 1.8 [place] # (Auto) 0.8 Eos # (Auto) 0.5 H Baso # (Auto) 0.0 Sodium 141 Potassium 4.2 Chloride 105 Carbon Dioxide 33 H Anion Gap 7.2 BUN 14 D Creatinine 1.10 D Estimated Creat Clear 106 Estimated GFR 69 Est GFR ( Amer) 84 D Glucose 94 Calcium 9.1 Magnesium 2.5 H DS: Diagnosis - Discharge Diagnosis (1) Pancreatitis Status: Resolved (2) Obesity (BMI 30.0-34.9) Status: Chronic (3) Epigastric pain Status: Acute (4) Cholelithiasis Status: Acute (5) Melanotic stools Status: Acute Discharge Plan - Patient Discharge Instructions ACTIVITY: Continue current activity DIET: low fat, low cholesterol Patient Instructions: Acute Pancreatitis, DI for Pancreatitis, DI for Abdominal Pain-Adult - Follow up Plan Follow up with: Ac Avalos MD [Primary Care Provider] - 11/19/20 Malik Mccallum MD [Staff Physician] - 2 weeks Disposition: Home, Self-Care Condition at discharge:: Improved Home Medications: Home Medications Medication Instructions Recorded Confirmed Type ibuprofen 800 mg tablet 800 mg PO BIDP PRN 09/08/18 11/12/20 History Omeprazole [Omeprazole 20mg 20 mg PO BID 11/12/20 11/13/20 History Capsule] Amlodipine Besylate/Benazepril 1 each PO DAILY 11/13/20 11/13/20 History [Amlodipine-Benazepril 5-10 mg] Prescriptions/Medication Reconciliation: Continued [place]
== END 2020-11-14 10:17 | disposition home or self-care (01) ==
LOC: 2ND 16:21
PROVIDERS: Internal Medicine Adolescent Medicine; Admitting Provider Internal Medicine Adolescent Medicine; PCP Internal Medicine Adolescent Medicine; Visit Provider Internal Medicine Adolescent Medicine
DX: K85.90 Acute pancreatitis without necrosis or infection, unspecified (principal); I10 Essential (primary) hypertension
CPT/HCPCS: 36415; 71046; 74177; 76700; 80048; 80053; 80061; 82150; 83690; 83735; 85007; 85025; G0378; Q9967; U0003

== ENCOUNTER 2022-03-23 19:20 | Emergency (ER) | payer BC, SELFPAY ==
[2022-03-23 19:29] VITALS: BP 141/79; PULSE 76; RESP 16; TEMP 36.6; O2SAT 99; BMI 35.2
--- NOTE | 2022-03-23 19:50 | EXP.UTC ---
Discharge Plan Disposition Patient Disposition: Home, Self-Care Condition: Good Prescriptions Prescriptions: New cephalexin [cephalexin] 500 mg tablet 500 mg PO BID 7 Days Qty: 14 0RF No Action omeprazole 20 MG capsule,delayed release(DR/EC) 20 mg PO BID amlodipine-benazepril 1 EACH capsule 1 each PO DAILY Referrals Follow up/Referrals: Ac Avalos MD [Primary Care Provider] - See instructions Activity Restrictions/Add. Instructions Additional Instructions/Restrictions: return 10 days for suture removal keep area clan and dry watch for s/s of infection Clinical Impressions Clinical Impression: Laceration, Suture of skin wound Discharge ED Provider: Galilea ([facility])Sarabjit [facility] [place] HPI General Stated complaint: AO 03/23/22 1900 Laceration right thumb Mode of Arrival: Ambulatory Source of Information: Patient Limitations: No Limitations Time Seen by Provider: 03/23/22 19:40 Description of Symptoms (Recalled from Triage Doc. by RN): pt comes in with laceration to left thumb from a hatchet. HEENT Symptoms (Recalled from RN notes): No Resp Symptoms (Recalled from RN notes): No Skin Symptoms (Recalled from RN notes): Yes MS Symptoms (Recalled from RN notes): No Functional Status (Recalled from RN notes): n/a History of Present Illness Provider Complaint: 56 yr old male presents with laceration to left thumb from a hatchet, while cutting firewood Related Data Home Medications Medication Instructions Recorded Confirmed omeprazole 20 mg capsule,delayed 20 mg PO BID GERD 11/12/20 11/13/20 release amlodipine 5 mg-benazepril 10 mg 1 each PO DAILY Hypertension 11/13/20 11/13/20 capsule Previous Rx's Medication Instructions Recorded cephalexin 500 mg tablet 500 mg PO BID 7 days #14 tabs 03/23/22 Allergies Allergy/AdvReac Type Severity Reaction Status Date / Time No Known Allergies Allergy Verified 05/06/19 15:38 Worker's Comp Is this a Worker's Comp case?: No PFSH PFS Social History , [employer]) Smoking Status: Never smoker alcohol intake: never current occupational status: employed Travel in the last 8 weeks: None household members: spouse housing: house current occupation: [employer] current occupational exposures/hazards: No caffeine: Yes ROS Obtained: Yes All systems reviewed & no additional complaints except as documented Physical Exam General General appearance: alert and in no apparent distress Head Head exam: atraumatic Eye Eye exam: Present normal appearance and PERRL ENT ENT exam: Present normal exam Neck Neck exam: Present normal inspection Respiratory Respiratory exam: Present normal lung sounds bilaterally Cardiovascular Cardiovascular exam: Present regular rate and normal rhythm Neurological Exam Neurological exam: Present alert and oriented X3 Skin Skin exam: Present other Expanded Skin Exam Type of lesion: Present laceration Distribution: other Body image: 1. laceration with clean edges Medical Decision Making Medical Records Medical records reviewed: Yes I reviewed the patient's medical records. Michael Inquiry Pt receiving controlled substance: No Vital Signs: 03/23/22 19:29 Temperature 97.8 F Temperature Source Oral Pulse Rate [Left] 76 Respiratory Rate 16 Blood Pressure [Right Arm] 141/79 H Blood Pressure Mean [Right Arm] 99 02 Sat by Pulse Oximetry 99 Orders (Tests/Meds): ED MEDICATIONS Discontinued Medications Generic Name Dose Route Start Last Admin Trade Name Freq PRN Reason Stop Dose Admin Tetanus/Diphtheria Toxoids 0.5 ml 03/23/22 19:36 03/23/22 19:37 Tetanus-Diphth Toxoid, Adult 0.5ml Syr IM 03/23/22 19:37 0.5 ml .ONCE ONE Administration Procedures Laceration Laceration 1: Site: thumb Side (If applicable): right Size (cm): 3 Description: linear and contaminated Depth: simp
[2022-03-23 19:57] VITALS: BP 141/79; PULSE 76; RESP 16; TEMP 36.6
== END 2022-03-23 20:02 | disposition home or self-care (01) ==
PROVIDERS: Emergency Provider Nurse Practitioner Family; PCP Internal Medicine Adolescent Medicine
DX: S61.011A Laceration without foreign body of right thumb without damage to nail, initial encounter (principal); W27.8XXA Contact with other nonpowered hand tool, initial encounter; Y93.H9 Activity, other involving exterior property and land maintenance, building and construction; Z23 Encounter for immunization
CPT/HCPCS: 12002; 90471; 90714; 99213; G0463

== ENCOUNTER 2024-07-01 09:21 | Outpatient (CLI) | payer BC, SELFPAY ==
--- NOTE | 2024-07-01 09:26 | US_ITS ---
FINAL REPORT CLINICAL HISTORY: ELEVATED LIVER ENZYMES COMPARISON: None FINDINGS: HEPATIC ULTRASOUND Multiple transverse and longitudinal scans were performed of the right upper quadrant of the abdomen. FINDINGS: There is fatty infiltration of the liver. No intrahepatic duct dilatation is identified. No evidence of common bile duct dilatation is identified. Doppler exam shows normal directional flow within patent hepatic and portal veins. Patient is status post cholecystectomy. IMPRESSION: Fatty liver. Reviewed, Interpreted and Dictated by Brien Hunter MD Transcribed by Idalia Purvis Authenticated and . [facility]
== END 2024-07-01 23:59 | disposition home or self-care (01) ==
LOC: RAD 09:22
PROVIDERS: PCP Nurse Practitioner Family; Visit Provider Nurse Practitioner Family
DX: R74.8 Abnormal levels of other serum enzymes (principal)
CPT/HCPCS: 76705